=== PATIENT | female | born 1985 | race Two or more races ===

== ENCOUNTER 2022-01-27 05:28 | Emergency (ER) | payer SELFPAY ==
[~2022-01-27] VITALS: Ht 157.5 cm; Wt 97.7 kg
[2022-01-27 05:29] VITALS: BP 139/89
[2022-01-27 07:41] LABS: BASOPHILS % (AUTO) 0.5 % (0.0-2.0); EOSINOPHILS % (AUTO) 1.2 % (1.0-6.0); HEMATOCRIT 38.9 % (36-46); HEMOGLOBIN 12.6 g/dL (12.0-16.0); LYMPHOCYTES # (AUTO) 3.3 K/uL (1.0-4.8); LYMPHOCYTES % (AUTO) 27.2 % (22.0-44.0); MEAN CORPUSCULAR HEMOGLOBIN 24.8 pg (26.0-34.0); MEAN CORPUSCULAR HGB CONC 32.5 G/dL (31.0-37.0); MEAN CORPUSCULAR VOLUME 76 fL (80-100); MONOCYTES # (AUTO) 0.6 K/uL (0.1-1.0); MONOCYTES % (AUTO) 5.3 % (2.0-9.0); NEUTROPHILS % (AUTO) 65.8 % (40.0-70.0); PLATELET COUNT (AUTO) 346 K/uL (150-450); RED CELL DISTRIBUTION WIDTH 14.7 % (11.5-14.5)
[2022-01-27 07:54] LABS: ANION GAP 7 mmol/L (8-16); CALCIUM, TOTAL 8.7 mg/dL (8.8-10.5); CARBON DIOXIDE 27 mmol/L (22-29); CHLORIDE 102 mmol/L (98-107); CREATININE 0.56 mg/dL (0.60-1.30); GLUCOSE,RANDOM 116 mg/dL (70-110); POTASSIUM 3.6 mmol/L (3.5-5.1); SODIUM SERUM 136 mmol/L (136-145); UREA NITROGEN, BLOOD 11 mg/dL (7-18)
[2022-01-27 07:55] LABS: PROTHROMBIN TIME 10.8 SEC (9.4-11.6)
[2022-01-27 07:57] LABS: GLOMERULAR FILTR. RATE CALC > 60 mL/min (>60)
[2022-01-27 08:00] LABS: ALANINE AMINOTRANSFERASE 35 U/L (12-78); ALBUMIN 3.3 g/dL (3.4-5.0); ALKALINE PHOSPHATASE 136 U/L (46-116); ASPARTATE AMINOTRANSFERASE 16 U/L (15-37); BILIRUBIN,TOTAL 0.2 mg/dL (0.1-1.0); TOTAL PROTEIN, SERUM 8.9 g/dL (6.4-8.2)
== END 2022-01-27 09:39 | disposition home or self-care (01) ==
LOC: EMS 05:30
DX: M79.622 Pain in left upper arm (principal); R42 Dizziness and giddiness
CPT/HCPCS: 71045; 80053; 84484; 85025; 85610; 85730; 93005; 99285; 36415-L1; 36415-TC